=== PATIENT | female | born 1950 | race Caucasian/White ===

== ENCOUNTER 2017-05-03 14:41 | Emergency (ER) | payer OTHER ==
[~2017-05-03] VITALS: Ht 167.6 cm; Wt 85.0 kg
[~2017-05-03 14:41] MED LIST: CINNAMON500 MG; CIPRO250 MG PO; DICLOFENAC SODI75 MG PO; DOXYCYCLINE HY100 MG PO; ESCITALOPRAM OXA5 MG PO; ESTROPIPATE1.5 MG PO; FLOMAX0.4 MG PO; HYDROCODON-ACE1 EAC7 PO; NAPROXEN500 MG PO; OMEGA XL; PRAVASTATIN SOD20 MG PO; PROBIOTIC COMP1 EACH; PROBIOTIC1 EAC1 PO; SIMVASTATIN20 M1 PO; SULFACETAMIDE118 ML PO; TAZORAC 0.05% C30 GM TP; VICODIN 5-3001 EACH PO; WELLBUTRIN SR150 MG PO; WELLBUTRIN XL300 MG PO
[2017-05-03] MEDS ORDERED: NORCO 10/3251 TABLET PO (17:35)
[2017-05-03 17:55] VITALS: BP 110/62
== END 2017-05-03 17:56 | disposition home or self-care (01) ==
LOC: EME 14:41
PROC: 2W3CX1Z Immobilization of Right Lower Arm using Splint (ICD-10-PCS; principal; 2017-05-03)
DX: S62.316A Displaced fracture of base of fifth metacarpal bone, right hand, initial encounter for closed fracture (principal); W10.1XXA Fall (on)(from) sidewalk curb, initial encounter; E11.9 Type 2 diabetes mellitus without complications; E78.5 Hyperlipidemia, unspecified; F41.9 Anxiety disorder, unspecified; F32.9 Major depressive disorder, single episode, unspecified; Z85.79 Personal history of other malignant neoplasms of lymphoid, hematopoietic and related tissues
CPT/HCPCS: 73110; 99281; 99284

== ENCOUNTER 2017-07-29 10:34 | Day surgery (SDC) | payer OTHER ==
[~2017-07-29] VITALS: Ht 167.6 cm; Wt 85.0 kg
[~2017-07-29 10:34] MED LIST changes: +GLUCOPHAGE500 MG PO; +NORCO 10/3251 TABLET PO; +OMEGA XL PO; +PAXIL10 MG PO; +PRAVACHOL40 MG PO; -PRAVASTATIN SOD20 MG PO
[2017-07-29 11:15] VITALS: BP 140/76
[2017-07-29 11:20] LABS: POINT-OF-CARE METER ID UU14174212
[2017-07-29 14:02] LABS: POINT-OF-CARE METER ID UU13113675
[2017-07-29 14:58] VITALS: BP 157/87
[2017-07-29 17:24] LABS: POINT-OF-CARE METER ID UU14314084
[2017-07-29 19:30] VITALS: BP 138/79
[2017-07-29 23:37] VITALS: BP 122/66
[2017-07-30 00:04] LABS: POINT-OF-CARE METER ID UU14314084
[2017-07-30 03:30] VITALS: BP 113/61
[2017-07-30 05:43] LABS: POINT-OF-CARE METER ID UU14208750
[2017-07-30 07:10] VITALS: BP 119/67
[2017-07-30 07:45] LABS: HEMATOCRIT 37.1 % (36.0-46.0); MCH 30.2 PG (29.0-34.0); MCHC 33.4 G/DL (30.0-36.0); MCV 90.3 FL (83-99); MEAN PLAT.VOLUME 9.2 uM^3 (9.5-12.4); PLATELET COUNT 255 K/uL (156-360); RBC DIS.WIDTH-CV 12.8 % (11.8-14.6); RBC DIS.WIDTH-SD 42.4 % (39-53); RED BLOOD COUNT 4.11 M/uL (3.80-5.20); WHITE BLOOD COUNT 10.1 K/uL (4.1-10.2)
[2017-07-30 08:06] LABS: ANION GAP 6 MEQ/L (2-14); CHLORIDE 105 MEQ/L (99-109); GFR ESTIMATE (CALCULATED) > 59 mL/min/; GLUCOSE 121 mg/dL (70-99); POTASSIUM 3.7 MEQ/L (3.7-5.4); SAMPLE HEMOLYSIS CHECK 0; SAMPLE ICTERIC CHECK 0; SAMPLE LIPEMIA CHECK 0; SODIUM 140 MEQ/L (136-147); UREA NITROGEN (BUN) 8 mg/dL (9-23)
[2017-07-30 11:07] VITALS: BP 123/63
== END 2017-07-30 11:19 | disposition home or self-care (01) ==
LOC: SDC 10:34 → 2SOUTH 13:30 → ENRESERV 13:41 → 2EASTP 14:50
PROVIDERS: Obstetrics & Gynecology Gynecologic Oncology
DX: N81.6 Rectocele (principal); K45.8 Other specified abdominal hernia without obstruction or gangrene; C85.90 Non-Hodgkin lymphoma, unspecified, unspecified site; E78.00 Pure hypercholesterolemia, unspecified; R73.03 Prediabetes; E53.8 Deficiency of other specified B group vitamins; Z79.84 Long term (current) use of oral hypoglycemic drugs; Z85.828 Personal history of other malignant neoplasm of skin; Z88.0 Allergy status to penicillin; Z88.5 Allergy status to narcotic agent; Z86.73 Personal history of transient ischemic attack (TIA), and cerebral infarction without residual deficits
CPT/HCPCS: 80048; 82948; 85027; 88304; G0378; J0131; J0330; J0690; J1100; J1170; J1650; J1815; J2250; J2405; J3010; J7120

== ENCOUNTER 2017-12-26 20:11 | Emergency (ER) | payer OTHER ==
[~2017-12-26] VITALS: Ht 167.6 cm; Wt 86.3 kg
[2017-12-26 22:01] LABS: HEMATOCRIT 37.3 % (36.0-46.0); HEMOGLOBIN 12.8 G/DL (11.9-15.5); MCH 30.3 PG (29.0-34.0); MCHC 34.3 G/DL (30.0-36.0); MCV 88.4 FL (83-99); PLATELET COUNT 213 K/uL (156-360); RBC DIS.WIDTH-CV 12.9 % (11.8-14.6); RBC DIS.WIDTH-SD 41.4 % (39-53); RED BLOOD COUNT 4.22 M/uL (3.80-5.20); WHITE BLOOD COUNT 9.8 K/uL (4.1-10.2)
[2017-12-26 22:07] LABS: INTER. NORMALIZED RATIO 0.9
[2017-12-26 22:10] LABS: PTT 28.9 SEC (25-37)
[2017-12-26 22:16] LABS: CHLORIDE 104 MEQ/L (99-109); MAGNESIUM 1.8 mg/dl (1.3-2.7); POTASSIUM 5.1 MEQ/L (3.7-5.4); SODIUM 138 MEQ/L (136-147)
[2017-12-26 22:22] LABS: CREATININE 0.9 MG/DL (0.6-1.3); GFR ESTIMATE (CALCULATED) > 59 mL/min/; GLUCOSE 116 mg/dL (70-99); UREA NITROGEN (BUN) 19 mg/dL (9-23)
[2017-12-27 00:05] LABS: APPEARANCE TURBID ((CLEAR)); COLOR BROWN ((YELLOW)); GLUCOSE (STRIP) NEGATIVE
[2017-12-27 00:06] LABS: BLOOD LARGE; KETONES NEGATIVE; LEUKOCYTES MODERATE; NITRITE POSITIVE; PROTEIN (STRIP) 300; SPECIFIC GRAVITY 1.018 (1.000-1.030)
[2017-12-27 00:08] LABS: RED BLOOD CELLS TNTC /HPF (0-5); UCUL ADDED? YES
[2017-12-27 02:01] LABS: CREATINE KINASE 70 IU/L (1-294)
[2017-12-27] MEDS ORDERED: CIPRO500 MG PO (02:14)
[2017-12-27] MEDS ORDERED: MOTRIN600 MG PO (02:14)
[2017-12-27 02:54] VITALS: BP 125/74
== END 2017-12-27 03:01 | disposition home or self-care (01) ==
LOC: EME 20:11
PROVIDERS: Emergency Medicine
DX: N39.0 Urinary tract infection, site not specified (principal); Z87.442 Personal history of urinary calculi; Z90.49 Acquired absence of other specified parts of digestive tract; E78.5 Hyperlipidemia, unspecified; E11.9 Type 2 diabetes mellitus without complications; F41.9 Anxiety disorder, unspecified; F32.9 Major depressive disorder, single episode, unspecified; Z85.72 Personal history of non-Hodgkin lymphomas; Z79.84 Long term (current) use of oral hypoglycemic drugs; Z91.041 Radiographic dye allergy status; Z88.8 Allergy status to other drugs, medicaments and biological substances
CPT/HCPCS: 74176; 80048; 81003; 82550; 83605; 83735; 85027; 85610; 85730; 87077; 87086; 87186; 99281; 99285; J0696; J2405; J3010; J7040